=== PATIENT | male | born 1985 | race Caucasian/White ===

== ENCOUNTER 2018-11-16 00:54 | Emergency (ER) | payer OTHER ==
[~2018-11-16] VITALS: Ht 180.3 cm; Wt 91.0 kg
[2018-11-16] MEDS ORDERED: KETAMINE HCL 50 MG/ML 10ML IV ONE (01:30)
[2018-11-16] MEDS ORDERED: ONDANSETRON HCL 4MG/2ML INJ IV ONE (01:30)
[2018-11-16] MEDS ORDERED: MORPHINE SULFATE 4 MG/ML CPJ (NOT FOR IM USE) IV ONE (01:30)
[2018-11-16] MEDS ORDERED: PROPOFOL 200MG/20ML VIAL IV ONE (01:30)
[2018-11-16 02:10] VITALS: BP 174/99
== END 2018-11-16 02:57 | disposition home or self-care (01) ==
LOC: ER 00:54
DX: S43.005A Unspecified dislocation of left shoulder joint, initial encounter (principal); W18.39XA Other fall on same level, initial encounter; Y93.89 Activity, other specified; Y92.89 Other specified places as the place of occurrence of the external cause; Y99.8 Other external cause status
CPT/HCPCS: 23650; 73020; 96374; 96375; 99152; 99285; J2270; J2405; J2704; J3490; A4565